=== PATIENT | male | born 1985 | race Caucasian/White ===

== ENCOUNTER 2016-07-14 18:54 | Emergency (ER) | payer OTHER ==
[~2016-07-14] VITALS: Ht 167.6 cm; Wt 84.5 kg
[2016-07-14 18:59] VITALS: Ht 167.6 cm; Wt 84.5 kg
--- NOTE | 2016-07-14 19:58 | ERD ---
ER Documentation Chief Complaint Date/Time DATE: 07/14/16 TIME: 19:54 Chief Complaint left 3rd finger pain and redness; "blister"; symptoms x 3 days HPI 31-year-old male presents here in emergency department for complaints of redness surrounding them left third fingernail and some part of the left third finger after an open wound on affected area 3 days ago. Patient actually scratched the area, is complaining of pain and swelling afterwards, throbbing pain, 6/10 scale, worse upon touching the area. He noticed the redness and swelling surrounding the left fingernail after the area. Unknown tetanus immunization. Patient is able to move the joint without any difficulty. ROS All systems reviewed and are negative except as per history of present illness. Medications Home Meds Active Scripts Ibuprofen* (Motrin*) 600 Mg Tab, 600 MG PO Q6H Y for PAIN AND OR ELEVATED TEMP, #30 TAB Prov:LOUISE ROQUE NP 07/14/16 Sulfamethoxazole-Trimethoprim* (Bactrim* DS) 800-160 Mg Tab, 1 TAB PO BID for 10 Days, TAB Prov:LOUISE ROQUE NP 07/14/16 Cephalexin* (Keflex*) 500 Mg Capsule, 500 MG PO QID for 10 Days, CAP Prov:LOUISE ROQUE NP 07/14/16 Reported Medications [none] Unknown Strength No Conflict Check 07/14/16 PMhx/Soc Medical and Surgical Hx: pt denies Medical Hx, pt denies Surgical Hx History of Surgery: No Anesthesia Reaction: No Hx Neurological Disorder: No Hx Respiratory Disorders: No Hx Cardiac Disorders: No Hx Psychiatric Problems: No Hx Alcohol Use: No Hx Tobacco Use: No Smoking Status: Light tobacco smoker FmHx Family History: No coronary disease, No diabetes, No other Physical Exam Vitals Vital Signs Date Time Temp Pulse Resp B/P Pulse Ox O2 Delivery O2 Flow Rate FiO2 07/14/16 18:59 97.8 82 18 119/71 98 Physical Exam GENERAL: The patient is well developed and appropriate for usual state of health, in no apparent distress. CHEST: Clear to auscultation bilaterally. There are no rales, wheezes or rhonchi. HEART: Regular rate and rhythm. No murmurs, clicks, rubs or gallops. No S3 or S4. ABDOMEN: Soft, nontender and nondistended. Good bowel sounds. No rebound or guarding. No gross peritonitis. No gross organomegaly or masses. No Capps sign or McBurney point tenderness. BACK: No midline or flank tenderness. EXTREMITIES: Equal pulses bilaterally. There is no peripheral clubbing, cyanosis or edema. No focal swelling or erythema. Full range of motion. Grossly neurovascularly intact. NEURO: Alert and oriented. Cranial nerves 2-12 intact. Motor strength in all 4 extremities with 5/5 strength. Sensation grossly intact. Normal speech and gait. SKIN: Nondistended erythema and tenderness on palpation surrounding the third nail of the left hand, also some redness in the proximal interphalangeal joint area superficial redness and tenderness, no fluctuance. There is no apparent rash or petechia. The skin is warm and dry. HEMATOLOGIC AND LYMPHATIC: There is no evidence of excessive bruising or lymphedema. No gross cervical, axillary, or inguinal lymphadenopathy. Results 24 hrs Current Medications Medications (Trade) Dose Ordered Sig/Cely Route PRN Reason Start Time Stop Time Status Last Admin Dose Admin Diphtheria/ Tetanus/Acell Pertussis (Adacel) 0.5 ml ONCE ONCE IM* 07/14/16 20:00 07/14/16 20:01 DC 07/14/16 19:58 Cefazolin Sodium (Ancef) 1 gm ONCE ONCE IM 07/14/16 20:30 07/14/16 20:31 UNV Tdap was given to prevent tetanus. Patient tolerated medication well. IM Ancef given to help with infection. Procedures/MDM Procedure Note: After obtaining informed consent, the wound was irrigated with 250 ml of normal saline and cleaned with diluted betadine. Using aseptic technique, incision was done in the middle of the fluctuant area of the paronychia and the soft tissue cyst in the finger. Pustular discharge was drained from the abscess. After the procedure, dry dressing was applied on the area. Patient tolerated procedure well. Medical decision making: Patient's symptoms most likely consistent with paronychia and soft tissue abscess. No symptoms of any neurovascular compromise , no symptoms of any sepsis. No injury of affected area. Etiology exam is indicated at this time. Patient was given for Bactrim, Keflex, ibuprofen, was advised to return in 2 days for reevaluation of symptoms. Patient is advised to return to emergency department for worsening symptoms. Departure Diagnosis: Primary Impression: Paronychia Laterality: left Qualified Code: L03.012 - Paronychia, left Additional Impression: Soft tissue abscess Condition: Stable Patient Instructions: Abscess, Incision And Drainage, Paronychia Additional Instructions: wound check 2 days LOUISE ROQUE NP Jul 14, 2016 19:58
[2016-07-14] MEDS ORDERED: DIPHTH/TET/ACEL PERTUSS (ADULT) 0.5 ML VIAL IM* ONE (20:00)
[2016-07-14] MEDS ORDERED: CEPH-443 PO (20:18)
[2016-07-14] MEDS ORDERED: IBUP-1542 PO (20:18)
[2016-07-14] MEDS ORDERED: BACTDS PO (20:18)
[2016-07-14] MEDS ORDERED: CEFAZOLIN 1 GM INJ IM ONE (20:30)
== END 2016-07-14 21:12 | disposition home or self-care (01) ==
LOC: FTE 18:54
DX: L03.012 Cellulitis of left finger (principal); L02.512 Cutaneous abscess of left hand; F17.210 Nicotine dependence, cigarettes, uncomplicated; Z23 Encounter for immunization
CPT/HCPCS: 26010; 90471; 90715; 96372; 99284; J0690